=== PATIENT | female | born 1980 | race Two or more races ===

== ENCOUNTER 2020-11-25 11:38 | Emergency (ER) | payer OTHER ==
[~2020-11-25] VITALS: Ht 160 cm; Wt 62.6 kg
[2020-11-25] MEDS ORDERED: CELEBREX100 MG PO (16:21)
[2020-11-25] MEDS ORDERED: PEPCID AC20 MG PO (16:21)
== END 2020-11-25 16:25 | disposition home or self-care (01) ==
LOC: ER 11:38
DX: T61.01XA Ciguatera fish poisoning, accidental (unintentional), initial encounter (principal); E86.0 Dehydration

== ENCOUNTER → 2020-11-27 | Emergency (ER) | payer OTHER ==
[~2020-11-27] VITALS: Ht 160 cm; Wt 59.4 kg
[~2020-11-27] MED LIST: CELEBREX100 MG PO; PEPCID AC20 MG PO
== END | disposition left against medical advice (07) ==
LOC: ER 12:37
DX: Z53.20 Procedure and treatment not carried out because of patient's decision for unspecified reasons (principal)

== ENCOUNTER 2020-11-29 11:49 | Emergency (ER) | payer OTHER ==
[~2020-11-29] VITALS: Ht 160 cm; Wt 62.6 kg
== END 2020-11-29 15:30 | disposition home or self-care (01) ==
LOC: ER 11:49
DX: T78.1XXA Other adverse food reactions, not elsewhere classified, initial encounter (principal); R53.81 Other malaise

== ENCOUNTER 2021-10-26 16:11 | Emergency (ER) | payer OTHER ==
[~2021-10-26] VITALS: Ht 160 cm; Wt 61.7 kg
[2021-10-26] MEDS ORDERED: BENADRYL ALLERG25 MG PO (18:24)
[2021-10-26] MEDS ORDERED: MEDROLPACK PO (20:37)
[2021-10-26] MEDS ORDERED: MAPAP22.4 MG/0. (23:14)
== END 2021-10-26 20:48 | disposition home or self-care (01) ==
LOC: ER 16:11
DX: O26.891 Other specified pregnancy related conditions, first trimester (principal); Z3A.01 Less than 8 weeks gestation of pregnancy; T78.1XXA Other adverse food reactions, not elsewhere classified, initial encounter; R21 Rash and other nonspecific skin eruption; X58.XXXA Exposure to other specified factors, initial encounter; Z88.8 Allergy status to other drugs, medicaments and biological substances

== ENCOUNTER 2021-10-27 13:13 | Emergency (ER) | payer OTHER ==
[~2021-10-27] VITALS: Ht 160 cm; Wt 61.7 kg
[~2021-10-27 13:13] MED LIST changes: +BENADRYL ALLERG25 MG PO; +MAPAP22.4 MG/0.; +MEDROLPACK PO
== END 2021-10-27 19:04 | disposition home or self-care (01) ==
LOC: ER 13:13
DX: O26.891 Other specified pregnancy related conditions, first trimester (principal); Z3A.01 Less than 8 weeks gestation of pregnancy; D28.2 Benign neoplasm of uterine tubes and ligaments; O34.81 Maternal care for other abnormalities of pelvic organs, first trimester; N83.202 Unspecified ovarian cyst, left side; Z88.8 Allergy status to other drugs, medicaments and biological substances

== ENCOUNTER 2021-10-28 14:56 | Emergency (ER) | payer OTHER ==
[~2021-10-28] VITALS: Ht 160 cm; Wt 64.0 kg
== END 2021-10-28 22:13 | disposition left against medical advice (07) ==
LOC: ER 14:56
DX: O26.91 Pregnancy related conditions, unspecified, first trimester (principal); T78.40XA Allergy, unspecified, initial encounter; Z88.6 Allergy status to analgesic agent; Z3A.01 Less than 8 weeks gestation of pregnancy

== ENCOUNTER 2021-11-27 09:28 | Outpatient (CLI) | payer OTHER | END 2021-11-27 10:15 | disposition home or self-care (01) | LOC: PRENATAL 09:28 | PROVIDERS: ATTEND Obstetrics & Gynecology Maternal & Fetal Medicine | DX: O36.80X0 Pregnancy with inconclusive fetal viability, not applicable or unspecified (principal); O09.529 Supervision of elderly multigravida, unspecified trimester; Z3A.11 11 weeks gestation of pregnancy ==

== ENCOUNTER 2021-12-15 13:36 | Outpatient (CLI) | payer OTHER | END 2021-12-15 15:00 | disposition home or self-care (01) | LOC: PRENATAL 13:36 | PROVIDERS: ATTEND Obstetrics & Gynecology Maternal & Fetal Medicine | DX: Z31.69 Encounter for other general counseling and advice on procreation (principal) ==

== ENCOUNTER 2022-01-27 12:30 | Outpatient (CLI) | payer OTHER | END 2022-01-27 14:23 | disposition home or self-care (01) | LOC: PRENATAL 12:30 | PROVIDERS: ATTEND Obstetrics & Gynecology Maternal & Fetal Medicine | DX: O36.80X0 Pregnancy with inconclusive fetal viability, not applicable or unspecified (principal); O09.529 Supervision of elderly multigravida, unspecified trimester; Z88.6 Allergy status to analgesic agent; Z3A.20 20 weeks gestation of pregnancy ==